=== PATIENT | female | born 1955 | race Caucasian/White ===

== ENCOUNTER → 2018-06-25 | Outpatient (CLI) | payer OTHER | END | disposition home or self-care (01) | LOC: CFH 14:18 | PROVIDERS: ATTEND Family Medicine | DX: N63.11 Unspecified lump in the right breast, upper outer quadrant (principal) | CPT/HCPCS: 76641; 77066; G0279 ==

== ENCOUNTER 2019-02-08 12:13 | Emergency (ER) | payer OTHER ==
[~2019-02-08] VITALS: Ht 160 cm; Wt 55.0 kg
[2019-02-08] MEDS ORDERED: SODIUM CHLORIDE FLUSH 10ML SYR IVF ONE (12:30)
[2019-02-08 12:57] LABS: BASOPHILS # (AUTO) 0.13 x10^3/uL (0-0.1); BASOPHILS % (AUTO) 2 % (0-1); EOSINOPHILS # (AUTO) 0.07 x10^3/uL (0-0.4); EOSINOPHILS % (AUTO) 1 % (1-7); LYMPHOCYTES # (AUTO) 1.69 x10^3/uL (1-3.4); LYMPHOCYTES % (AUTO) 23 % (22-44); MD NO; MEAN CORPUSCULAR HEMOGLOBIN 32.6 pg (27.0-34.8); MEAN CORPUSCULAR HGB CONC 33.7 g/dL (32.4-35.8); MEAN CORPUSCULAR VOLUME 96.8 fL (80-100); MEAN PLATELET VOLUME 6.7 fL (7.4-10.4); MONOCYTES # (AUTO) 0.54 x10^3/uL (0.2-0.8); MONOCYTES % (AUTO) 7 % (2-9); NEUTROPHILS # (AUTO) 4.97 x10^3/uL (1.8-6.8); NEUTROPHILS % (AUTO) 67 % (42-75); PLATELET COUNT 277 x10^3/uL (130-400); RED BLOOD COUNT 4.64 x10^6/uL (3.82-5.3); RED CELL DISTRIBUTION WIDTH 13.6 % (9.6-15.2)
[2019-02-08 13:10] LABS: CALCIUM 8.9 mg/dL (8.5-10.1); CHLORIDE 105 mmol/L (98-107)
--- NOTE | 2019-02-08 13:11 | NUR ---
Pt to room from [facility], ambulatory with steady gait.
[2019-02-08 13:15] LABS: ALANINE AMINOTRANSFERASE 26 U/L (12-78); ALKALINE PHOSPHATASE 64 U/L (45-117); ANION GAP 8 mmol/L (5-15); BILIRUBIN,TOTAL 0.4 mg/dL (0.2-1.0); CREATININE 0.72 mg/dL (0.55-1.02); TOTAL PROTEIN 7.9 g/dL (6.4-8.2); TROPONIN I < 0.015 ng/mL (0.000-0.045)
[2019-02-08] MEDS ORDERED: LISI5TAB7 PO (13:29)
--- NOTE | 2019-02-08 13:31 | NUR ---
BREAK RN: THIS IS A 63 YEAR OLD FEMALE WHO C/O OF LEFT UPPER ARM/SHOULDER BACK PAIN WHICH STARTED AT 0730. PT STATES PAIN IS NO RESOLVED. PT PLACED ON MID LEVEL PROJECT MANAGER, SINUS, CONTINOUS SP02 AND CYCLE VS.
[2019-02-08 14:48] VITALS: BP 166/98
== END 2019-02-08 14:51 | disposition home or self-care (01) ==
LOC: ED 14:35
DX: R07.89 Other chest pain (principal); I10 Essential (primary) hypertension
CPT/HCPCS: 36415; 71045; 80053; 84484; 85025; 93005; 99284